=== PATIENT | female | born 1980 | race Caucasian/White ===

== ENCOUNTER 2024-08-07 20:04 | Emergency (ER) | payer MEDICARE, OTHER ==
--- NOTE | 2024-08-07 20:51 | ED ---
Upper Extremity HPI - General Chief Complaint: Extremity Injury, Upper Stated Complaint: R Wrist Injury Time Seen by Provider: 08/07/24 20:50 Source: patient, RN notes reviewed Mode of arrival: ambulatory Limitations: no limitations - History of Present Illness Initial Comments: 44-year-old female presented to the ER for evaluation of right hand pain. Patient is currently residing at [facility] for cocaine abuse. Patient has been there for 1 day. She states she was playing volleyball earlier this afternoon and started to experience a sharp pain to her right thumb and wrist. She states pain has been ongoing since 2:30 PM. She has attempted to ice and rest injury without relief of symptoms. She has noticed continued swelling and bruising to thenar eminence and wrist which prompted emergency department visit. She denies any paresthesias, elbow, shoulder or neck pain. She is not taking anything orally for pain. No other complaints. - Related Data Allergies Allergy/AdvReac Type Severity Reaction Status Date / Time codeine Allergy Swelling Verified 08/07/24 20:29 Review of Systems ROS Statement: Those systems with pertinent positive or pertinent negative responses have been documented in the HPI. ROS Other: All systems not noted in ROS Statement are negative. Past Medical History Additional Past Medical History / Comment(s): alpha 1 Additional Past Surgical History / Comment(s): ulnar decompression surgery, carpal tunnel Smoking Status: Current every day smoker Past Alcohol Use History: Occasional Past Drug Use History: Cocaine General Exam Limitations: no limitations General appearance: alert, in no apparent distress Respiratory exam: Present: normal lung sounds bilaterally. Absent: respiratory distress, wheezes, rales, rhonchi, stridor Cardiovascular Exam: Present: regular rate, normal rhythm, normal heart sounds. Absent: systolic murmur, diastolic murmur, rubs, gallop, clicks Extremities exam: Present: full ROM, tenderness (And bruising to right thenar eminence. No anatomical snuffbox tenderness.), normal capillary refill (2+ right radial pulse) Neurological exam: Present: alert, oriented X3, CN II-XII intact Skin exam: Present: warm, dry, intact, normal color. Absent: rash Course Vital Signs 08/07/24 08/07/24 20:23 21:39 Temperature 98.5 F 98.4 F Pulse Rate 86 87 Respiratory 17 19 Rate Blood Pressure 117/82 118/79 O2 Sat by Pulse 98 99 Oximetry Medical Decision Making - Medical Decision Making Was pt. sent in by a medical professional or institution (TIKA Alva, ROUGH AND TRUING MACHINE OPERATOR, urgent care, hospital, or long-term...) When possible be specific @ -Patient sent by [facility] for evaluation of right wrist/hand pain. Did you speak to anyone other than the patient for history (EMS, parent, family, police, friend...)? What history was obtained from this source @ -No Did you review nursing and triage notes (agree or disagree)? Why? @ -I reviewed and agree with nursing and triage notes Were old charts reviewed (outside hosp., previous admission, EMS record, old EKG, old radiological studies, urgent care reports/EKG's, long-term records)? Report findings @ -No old charts were reviewed Differential Diagnosis (chest pain, altered mental status, abdominal pain women, abdominal pain men, vaginal bleeding, weakness, fever, dyspnea, syncope, headache, dizziness, GI bleed, back pain, seizure, CVA, palpatations, mental health, musculoskeletal)? @ -Differential Musculoskeletal: Muscular strain, contusion, ligament sprain, fracture, arthritis, septic arthritis, bursitis, cellulitis, muscle spasm, nerve compression, DVT, arterial occlusion, herpes zoster, electrolyte abnormality, tumor.... This is not meant to be in all inclusive list EKG interpreted by me (3pts min.). @ -None done X-rays interpreted by me (1pt min.). @ -Right wrist/hand x-rays interpreted me negative for acute fractures or dislocations. CT interpreted by me (1pt min.). @ -None done U/S interpreted by me (1pt. min.). @ -None done What testing was considered but not performed or refused? (CT, X-rays, U/S, labs)? Why? @ -None What meds were considered but not given or refused? Why? @ -None Did you discuss the management of the patient with other professionals (professionals i.e. TIKA Alva, ROUGH AND TRUING MACHINE OPERATOR, lab, RT, psych nurse, foster care social worker, ladle patcher, teacher, penal officer, leather case finisher)? Give summary @ -No Was smoking cessation discussed for >3mins.? @ -No Was critical care preformed (if so, how long)? @ -No Were there social determinants of health that impacted care today? How? (Homelessness, low income, unemployed, alcoholism, drug addiction, tra nsportation, low edu. Level, literacy, decrease access to med. care, skilled nursing, rehab)? @ -Patient currently residing at [facility] for cocaine rehabilitation. Was there de-escalation of care discussed even if they declined (Discuss DNR or withdrawal of care, Hospice)? DNR status @ -No What co-morbidities impacted this encounter? (DM, HTN, Smoking, COPD, CAD, Cancer, CVA, ARF, Chemo, Hep., AIDS, mental health diagnosis, sleep apnea, morbid obesity)? @ -drug abuse Was patient admitted / discharged? Hospital course, mention meds given and route, prescriptions, significant lab abnormalities, going to OR and other pertinent info. @ -Discharge. 44-year-old female presented to ER for evaluation of right wrist/hand pain. Patient presents from [facility]. Vital signs stable. Patient is neurovascular intact. There is tenderness and contusion noted to right thenar eminence. No anatomical snuffbox tenderness. Patient provided with p.o. ibuprofen and ice pack for pain control in the ER, with improvement. X-rays negative for acute fractures or dislocations. Patient will be placed in an Kyle wrap and advised on conservative treatment options. Return parameters discussed. Patient discharged in stable condition back to [facility]. Advise follow-up with PCP. Patient verbal expressed understanding agree with care plan. Case discussed with ED attending, . Undiagnosed new problem with uncertain prognosis? @ -No Drug Therapy requiring intensive monitoring for toxicity (Heparin, Nitro, Insulin, Cardizem)? @ -No Were any procedures done? @ -No Diagnosis/symptom? @ -Wrist sprain/contusion Acute, or Chronic, or Acute on Chronic? @ -Acute Uncomplicated (without systemic symptoms) or Complicated (systemic symptoms)? @ -Uncomplicated Side effects of treatment? @ -No Exacerbation, Progression, or Severe Exacerbation? @ -No Poses a threat to life or bodily function? How? (Chest pain, [place], [place], pneumonia, PE, COPD, DKA, ARF, appy, cholecystitis, CVA, Diverticulitis, Homicidal, Suicidal, threat to staff... and all critical care pts) @ -No - Radiology Data Radiology results: report reviewed, image reviewed Disposition Clinical Impression: Contusion, Wrist sprain Disposition: HOME SELF-CARE Condition: Stable Instructions (If sedation given, give patient instructions): Hand Sprain (ED) Additional Instructions: Continue [id number] ibuprofen and Tylenol for pain control. I also recommend rest, ice, elevation and compression. Follow-up with PCP. Return to the ER for any new or worsening concerns. Is patient prescribed a controlled substance at d/c from ED?: No Referrals: None,Stated [Primary Care Provider] - 1-2 days Time of Disposition: 21:25
[2024-08-07] MEDS: IBUPROFEN 800 MG TAB PO STA (21:03)
--- NOTE | 2024-08-07 21:17 | XR ---
EXAMINATION TYPE: XR wrist complete RT, XR hand complete RT DATE OF EXAM: 08/07/2024 9:06 PM COMPARISON: None CLINICAL INDICATION: Female, 44 years old with history of pain after playing volleyball-distal radius ; PH[facility], pain TECHNIQUE: XR wrist complete RT, XR hand complete RT; examined in the Frontal, navicular, lateral, a nd oblique. FINDINGS: No acute osseous pathology, joint dislocation, or joint effusion. No evidence of any soft tissue swelling is seen. IMPRESSION: No acute osseous pathology. [facility], , 08/07/2024 9:15 PM
[2024-08-07 21:40] VITALS: BP 118/79; PULSE 87; RESP 19; TEMP 98.4
== END 2024-08-07 21:51 | disposition home or self-care (01) ==
LOC: EC 20:04
DX: S60.211A Contusion of right wrist, initial encounter (principal); F14.10 Cocaine abuse, uncomplicated; F17.200 Nicotine dependence, unspecified, uncomplicated; Z88.5 Allergy status to narcotic agent; Y93.68 Activity, volleyball (beach) (court)
CPT/HCPCS: 99283